=== PATIENT | male | born 1945 | race Caucasian/White ===

== ENCOUNTER 2024-05-18 10:41 | Observation (INO) ==
[2024-05-18] MEDS: ROCEPHIN VIAL 1 GRAM IVP ONE (13:10)
[2024-05-18] MEDS: ROCEPHIN VIAL 1 GRAM 1 G in NS 100 ML IV 100 ML IV ONE (13:16)
[2024-05-18 13:19] LABS: HEMOGLOBIN 10.9 g/dL (13.5-18.0); RED BLOOD COUNT 3.81 X10^6/uL (4.7-6.0); WHITE BLOOD COUNT 3.1 X10^3/uL (3.6-10.0)
[2024-05-18 13:22] LABS: BASOPHILS # (AUTO) 0.1 X10^3/uL (0.0-0.1); EOSINOPHILS # (AUTO) 0.1 x10^3/uL (0.0-0.2); EOSINOPHILS % (AUTO) 4.7 % (0.9-2.9); HEMATOCRIT 32.6 % (42.0-54.0); LYMPHOCYTES # (AUTO) 0.3 X10^3/uL (1.3-2.9); LYMPHOCYTES % (AUTO) 8.4 % (21.0-51.0); MEAN CORPUSCULAR HEMOGLOBIN 28.6 pg (27.0-34.0); MEAN CORPUSCULAR HGB CONC 33.4 g/dL (33.0-35.0); MEAN CORPUSCULAR VOLUME 85.5 fL (80.0-100.0); MEAN PLATELET VOLUME 8.6 fL (7.4-11.0); MONOCYTES # (AUTO) 0.2 x10^3/uL (0.3-0.8); MONOCYTES % (AUTO) 6.3 % (0.0-13.0); NEUTROPHILS # (AUTO) 2.4 x10^3/uL (2.2-4.8); NEUTROPHILS % (AUTO) 77.6 % (42.0-75.0); PLATELET COUNT 134 X10^3/uL (150.0-450.0); RED CELL DISTRIBUTION WIDTH 15.4 % (11.6-16.5)
[2024-05-18 13:33] LABS: ALBUMIN 2.8 g/dL (3.4-5.0); CALCIUM 8.9 mg/dL (8.5-10.1); CARBON DIOXIDE 27.9 mmol/L (21-32); COR CA(FOR HYPOALB) 9.9 mg/dL (8.5-10.1); CREATININE 1.54 mg/dL (0.70-1.30); POTASSIUM 3.7 mmol/L (3.5-5.1); TOTAL PROTEIN 6.8 g/dL (6.4-8.2)
[2024-05-18 13:42] LABS: BAND NEUTROPHILS % 8 % (0-10); PLATELET MORPHOLOGY COMMENT NORMAL (NORMAL)
[2024-05-18 14:28] LABS: BILIRUBIN,URINE NEGATIVE (NEGATIVE); BLOOD/HEMOGLOBIN,URINE 1+ (NEGATIVE); GLUCOSE, URINE NEGATIVE (NEGATIVE); KETONES,URINE NEGATIVE (NEGATIVE); LEUKOCYTE ESTERASE ,URINE NEGATIVE (NEGATIVE); NITRITES,URINE NEGATIVE (NEGATIVE); PROTEIN,URINE 2+ (NEGATIVE); UROBILINOGEN,URINE NORMAL (NORMAL)
[2024-05-18 14:46] LABS: APPEARANCE,URINE CLEAR (CLEAR); COLOR,URINE YELLOW (YELLOW)
[2024-05-18 14:47] LABS: BACTERIA,URINE 1+ /HPF (NEGATIVE); SQUAMOUS EPITHELIAL CELL,UR FEW /HPF (NEGATIVE)
[2024-05-18 14:50] LABS: GRANULAR CASTS,URINE FEW /LPF (NEGATIVE)
[2024-05-18] MEDS: NS 1,000 ML IV 1,000 ML IV SCH (16:01)
--- NOTE | 2024-05-18 16:14 | DR.UPM ---
HPI Time Seen Time Seen by Provider: 05/18/24 12:40 PCP Primary Care Physician: Maria Guadalupe Shultz Complaint Chief Complaint Doctors Comments: 79 yo M, hx of bone cancer of unknown type, diagnosed with UTI by PCP 2d ago, had Rocephin in office, started on Bactrim. Brought to ER by daughter yest, seen by me, was c/o hallucinations, weakness & mult falls yest. Pt was given dose of Rocephin here yest. Urine appeared partially treated yest, given option for admission at that time, decision was made to go home with strict return precautions. Today, daughter states pt continues to have nightly hallucinations, confusion and multiple falls. Denies other complaints. Chief Complaint:: Marielle, daughter states that patient was here yesterday for UTI, fever, hallucinations and fall. He is having the same symptoms so she brought him back today. She states that the ER doctor yesterday said to come back if not better. no fall since before yesterday visit. patient c/o burning with urination Self Treatment fo Chief Complaint: Tylenol at 0830 for 101 temp COVID-19 Coronavirus risk:travel/contact w/high risk person: No Has patient experienced Coronavirus symptoms: No Source History Provided: Patient and Family Member Mode of Arrival Mode of Arrival: Ambulatory Timing Onset of Chief Complaint: 05/12/24 PMH PMH Past Medical History: Yes Past Medical History: COPD, Coronary Artery Disease and Hypertension Past Surgical History: Yes Surgical History: Appendectomy, CABG/Valve Surgery and Ortho Surgery Family History History of Family Medical Conditions: Yes Family Medical History: Diabetes Mellitus, [place] and Hypertension Social History Type of Tobacco Use: None Alcohol Use: None Do you use any recreational Drugs:: No Lives With: Significant Other Lives Where: Home Travel Risk Coronavirus risk:travel/contact w/high risk person: No Has patient experienced Coronavirus symptoms: No Infectious screening Have you traveled outside the country in the last 6 months?: No Isolation: Standard ROS Review of Systems Constitutional: Chills, Fever, Malaise, Weakness and Other (multiple falls) Psychiatric: Hallucinations All Other Systems: Reviewed and Negative PE Vital Signs Vitals: Vital Signs Temperature 100.1 F Pulse Rate 96 Respiratory Rate 16 Blood Pressure 114/56 O2 Sat by Pulse Oximetry 95 General Limitations: No Limitations General Appearance: Alert and In No Apparent Distress Head Head Exam: Normal Inspection Eyes Eye exam: Normal Appearance ENT ENT Exam: Normal Exam Neck Neck Exam: Normal Inspection Chest Chest Inspection: Normal Inspection Respiratory Respiratory Exam: Normal Lung Sounds Bilat Respiratory Exam: Bilateral: Clear to Auscultation Cardiovascular Cardiovascular Exam: Regular Rate and Normal Rhythm Abdominal Exam Abdominal Exam: Normal Inspection, Normal Bowel Sounds and Soft Rectal Rectal Exam: Deferred Genitourinary Exam: Male: Deferred Extremities Extremities Exam: Normal Inspection Back Back Exam: Normal Inspection Neurologic Neurological Exam: Alert and Oriented X3 Psychiatric Psychiatric Exam: Normal Affect and Normal Mood Skin Skin Exam: Warm, Dry, Intact and Normal Color ROR Labs Reviewed 05/18/24 12:57 05/18/24 12:57 Laboratory: WBC 3.1 X10^3/uL (3.6-10.0) L 05/18/24 12:57 RBC 3.81 X10^6/uL (4.7-6.0) L 05/18/24 12:57 Hgb 10.9 g/dL (13.5-18.0) L 05/18/24 12:57 Hct 32.6 % (42.0-54.0) L 05/18/24 12:57 MCV 85.5 fL (80.0-100.0) 05/18/24 12:57 MCH 28.6 pg (27.0-34.0) 05/18/24 12:57 MCHC 33.4 g/dL (33.0-35.0) 05/18/24 12:57 RDW 15.4 % (11.6-16.5) 05/18/24 12:57 Plt Count 134 X10^3/uL (150.0-450.0) L 05/18/24 12:57 Plt Count Comment Decreased (ADEQUATE) 05/18/24 12:57 MPV 8.6 fL (7.4-11.0) 05/18/24 12:57 Neut % (Auto) 77.6 % (42.0-75.0) H 05/18/24 12:57 Lymph % (Auto) 8.4 % (21.0-51.0) L 05/18/24 12:57 [place] % (Auto) 6.3 % (0.0-13.0) 05/18/24 12:57 Eos % (Auto) 4.7 % (0.9-2.9) H 05/18/24 12:57 Baso % (Auto) 3.0 % (0.2-1.0) H 05/18/24 12:57 Neut # (Auto) 2.4 x10^3/uL (2.2-4.8) 05/18/24 12:57 Lymph # (Auto) 0.3 X10^3/uL (1.3-2.9) L 05/18/24 12:57 [place] # (Auto) 0.2 x10^3/uL (0.3-0.8) L 05/18/24 12:57 Eos # (Auto) 0.1 x10^3/uL (0.0-0.2) 05/18/24 12:57 Baso # (Auto) 0.1 X10^3/uL (0.0-0.1) 05/18/24 12:57 Absolute Nucleated RBC 0.2 /100WBC 05/18/24 12:57 Total Counted 100 05/18/24 12:57 Neutrophils % (Manual) 76 % (39-76) 05/18/24 12:57 Band Neutrophils % 8 % (0-10) 05/18/24 12:57 Lymphocytes % (Manual) 9 % (13-43) L 05/18/24 12:57 Monocytes % (Manual) 7 % (4-9) 05/18/24 12:57 Plt Morphology Comment Normal (NORMAL) 05/18/24 12:57 RBC Morphology Normal (NORMAL) 05/18/24 12:57 Sodium 136 mmol/L (136-145) 05/18/24 12:57 Corrected Sodium 136 mmol/L (136-145) 05/18/24 12:57 Potassium 3.7 mmol/L (3.5-5.1) 05/18/24 12:57 Chloride 101 mmol/L (98-107) 05/18/24 12:57 Carbon Dioxide 27.9 mmol/L (21-32) 05/18/24 12:57 BUN 19 mg/dL (7-18) H 05/18/24 12:57 Creatinine 1.54 mg/dL (0.70-1.30) H 05/18/24 12:57 Est GFR (MDRD) Af Amer 57 (>60) L 05/18/24 12:57 Est GFR (MDRD) Non-Af 47 (>60) L 05/18/24 12:57 Glucose 112 mg/dL (65-99) H 05/18/24 12:57 Lactic Acid 1.1 mmol/L (0.4-2.0) 05/18/24 12:57 Calcium 8.9 mg/dL (8.5-10.1) 05/18/24 12:57 Corrected Calcium 9.9 mg/dL (8.5-10.1) 05/18/24 12:57 Total Bilirubin 0.30 mg/dL (0.2-1.0) 05/18/24 12:57 AST 26 Units/L (15-37) 05/18/24 12:57 ALT 20 Units/L (12-78) 05/18/24 12:57 Alkaline Phosphatase 95 Units/L (46-116) 05/18/24 12:57 Total Protein 6.8 g/dL (6.4-8.2) 05/18/24 12:57 Albumin 2.8 g/dL (3.4-5.0) L 05/18/24 12:57 Globulin 4.0 g/dL (2.5-4.5) 05/18/24 12:57 Albumin/Globulin Ratio 0.7 Ratio (1.1-2.1) L 05/18/24 12:57 Specimen Type Clean catch urine 05/18/24 14:23 Urine Color Yellow (YELLOW) 05/18/24 14:23 Urine Appearance Clear (CLEAR) 05/18/24 14:23 Urine pH 6.0 (5.0 - 8.0) 05/18/24 14:23 Ur Specific [place] 1.020 (1.000-1.030) 05/18/24 14:23 Urine Protein 2+ (NEGATIVE) 05/18/24 14:23 Urine Glucose (UA) Negative (NEGATIVE) 05/18/24 14:23 Urine Ketones Negative (NEGATIVE) 05/18/24 14:23 Urine Blood 1+ (NEGATIVE) 05/18/24 14:23 Urine Nitrite Negative (NEGATIVE) 05/18/24 14:23 Urine Bilirubin Negative (NEGATIVE) 05/18/24 14:23 Urine Urobilinogen Normal (NORMAL) 05/18/24 14:23 Ur Leukocyte Esterase Negative (NEGATIVE) 05/18/24 14:23 Urine RBC 3-5 /HPF (0-3) A 05/18/24 14:23 Urine WBC None seen /HPF (0-5) 05/18/24 14:23 Ur Squamous Epith Cells Few /HPF (NEGATIVE) 05/18/24 14:23 Amorphous Sediment 1+ /HPF (NEGATIVE) 05/18/24 14:23 Urine Bacteria 1+ /HPF (NEGATIVE) 05/18/24 14:23 Granular Casts Few /LPF (NEGATIVE) 05/18/24 14:23 Urine Mucus Few /HPF (NEGATIVE) 05/18/24 14:23 Ur Culture Indicated? No/not indicated 05/18/24 14:23 SARS-CoV-2 (PCR) Negative (NEGATIVE) 05/18/24 14:04 Influenza Type A (PCR) Negative (NEGATIVE) 05/18/24 14:04 Influenza Type B (PCR) Negative (NEGATIVE) 05/18/24 14:04 RSV (PCR) Negative (NEGATIVE) 05/18/24 14:04 Opioid Opioid Risk Tool Age (Dwight box if 16-45): No History of Preadolescent Sexual Abuse: No Total: 0 Total Score Risk Category: Low Risk Copyright: Morin predicting aberrant behaviors Discharge Plan Diagnosis Discharge Problem: TEMO (acute kidney injury), Weakness, Hallucinations, Acute UTI Discharge Plan Patient Disposition: 09 ADMITTED INPATIENT Condition: Stable Prescriptions: No Action metoprolol succinate 50 MG tablet extended release 24 hr 50 mg PO DAILY tamsulosin 0.4 MG capsule,extended release 24hr 1 tab PO DAILY Patient Comments: take one capsule by mouth 30 minutes after the same meal each day zolpidem 10 MG tablet 10 mg PO DAILY hydrocodone-acetaminophen 10-325 mg tablet 1 tab PO QID PRN amlodipine 10 mg tablet 10 mg PO QDAY pantoprazole 40 mg tablet,delayed release (DR/EC) 40 mg PO QDAY gabapentin 300 mg capsule 300 mg PO BID losartan 100 mg tablet 100 mg PO QDAY rosuvastatin 20 mg tablet 20 mg PO QPM sulfamethoxazole-trimethoprim [Bactrim DS] 800-160 mg tablet 1 tab PO BID Qty: 10 0RF Rx Instructions: x 14 days started on 05/16/24 clopidogrel 75 mg tablet 75 mg PO DAILY Health Concerns: Post Hospitalization: new medications and changes needed to prevent readmission or further decline. Pt educated and given instructions on all concerns. Plan of Treatment: Continue with present treatment and follow up plan. Pt is to keep follow up appointment as instructed and take medications as ordered. Orders to Discharge Patient Discharge Orders: Transfer (Routine); Ordered 05/18/24 Ordered By: Aron Damon Follow ups/Referrals Follow ups/Referrals: MARIA GUADALUPE SHULTZ [Primary Care Provider] - 3 days Instructions Stand Alone Forms: Find Help Web Site, Post Hospital Follow Up Care ADDITIONAL NOTES Additional Notes Additional Notes: admitted by Dr Pleitez at 1605
[2024-05-18] MEDS ORDERED: PROVENTIL NEB TX 0.083% 2.5MG/ 3ML NEB PRN (17:11)
[2024-05-18] MEDS: TYLENOL 325 MG TAB PO PRN (17:33)
[2024-05-18] MEDS ORDERED: CONSULT PHARMACY - POTASSIUM & MAGNESIUM XX SCH (18:00)
[2024-05-18 18:04] VITALS: BMI 25.7
[2024-05-18] MEDS: MILK OF MAGNESIA PO PRN (20:17)
[2024-05-18] MEDS: KLOR-CON PO SCH (20:18)
[2024-05-18] MEDS: MAG-OX TAB PO SCH (20:19)
[2024-05-18] MEDS: CRESTOR TAB 10 MG PO SCH (20:19)
[2024-05-18] MEDS: NEURONTIN CAP 300 MG PO SCH (20:20)
[2024-05-18] MEDS: COLACE CAP 100 MG PO PRN (20:20)
[2024-05-19 06:24] LABS: BASOPHILS % (AUTO) 0.4 % (0.2-1.0); EOSINOPHILS % (AUTO) 0.7 % (0.9-2.9); HEMATOCRIT 32.8 % (42.0-54.0); LYMPHOCYTES # (AUTO) 0.4 X10^3/uL (1.3-2.9); MEAN CORPUSCULAR HEMOGLOBIN 28.6 pg (27.0-34.0); MEAN CORPUSCULAR HGB CONC 33.6 g/dL (33.0-35.0); MEAN CORPUSCULAR VOLUME 85.1 fL (80.0-100.0); MEAN PLATELET VOLUME 9.2 fL (7.4-11.0); MONOCYTES # (AUTO) 0.2 x10^3/uL (0.3-0.8); MONOCYTES % (AUTO) 8.7 % (0.0-13.0); NEUTROPHILS # (AUTO) 1.8 x10^3/uL (2.2-4.8); NEUTROPHILS % (AUTO) 74.2 % (42.0-75.0); PLATELET COUNT 111 X10^3/uL (150.0-450.0); RED BLOOD COUNT 3.85 X10^6/uL (4.7-6.0); RED CELL DISTRIBUTION WIDTH 15.4 % (11.6-16.5); WHITE BLOOD COUNT 2.4 X10^3/uL (3.6-10.0)
[2024-05-19 06:30] LABS: INR 1.61 (0.8-1.3)
[2024-05-19 06:46] LABS: ALANINE AMINOTRANSFERASE 34 Units/L (12-78); ALBUMIN 2.7 g/dL (3.4-5.0); ALKALINE PHOSPHATASE 141 Units/L (46-116); ASPARTATE AMINO TRANSFERASE 48 Units/L (15-37); BLOOD UREA NITROGEN 20 mg/dL (7-18); CALCIUM 8.7 mg/dL (8.5-10.1); CARBON DIOXIDE 25.7 mmol/L (21-32); CHLORIDE 103 mmol/L (98-107); COR CA(FOR HYPOALB) 9.7 mg/dL (8.5-10.1); COR NA(FOR HYPERGLY) 138 mmol/L (136-145); CREATININE 1.26 mg/dL (0.70-1.30); GLUCOSE 117 mg/dL (65-99); POTASSIUM 4.1 mmol/L (3.5-5.1); SODIUM 138 mmol/L (136-145); TOTAL PROTEIN 6.6 g/dL (6.4-8.2); eGFR NON BLACK RACES 59 (>60)
[2024-05-19 06:59] LABS: BAND NEUTROPHILS % 6 % (0-10); PLATELET MORPHOLOGY COMMENT NORMAL (NORMAL)
[2024-05-19] MEDS: FLOMAX PO SCH (08:29)
[2024-05-19] MEDS: PROTONIX TAB 40 MG PO SCH (08:29)
[2024-05-19] MEDS: NORVASC TAB 10 MG PO SCH (08:29)
[2024-05-19] MEDS: COZAAR PO SCH (08:29)
[2024-05-19] MEDS: PLAVIX PO SCH (08:29)
[2024-05-19] MEDS: TOPROL XL PO SCH (08:29)
[2024-05-19] MEDS: ROCEPHIN VIAL 1 GRAM IV SCH (08:30)
[2024-05-19] MEDS: LOVENOX INJ 40 MG SYR SC SCH (10:31)
[2024-05-19] MEDS: ALPRAZOLAM ODT PO PRN (20:14)
--- NOTE | 2024-05-19 20:15 | DR.H&P ---
H&P History & Physical for Day of: H&P Date: 05/19/24 Chief Complaint Chief Complaint: AMS, UTI, falls History of Present Illness History of Present Illness: Patient is a 79y/o male with a PMH of COPD, CAD, HTN presented with hallucinations, fall, and AMS. He was being treated outpatient for UTI. ER work up showed CT-brain neg, Cr 1.54. He was started on IV antibiotics and fluids. He is alert and oriented today. Labs/imaging reviewed: -WBC 2.4 Hgb 11 K 4.1 Cr 1.26 -Blood Cx pending -CT-brain neg Plan: continue hydration and IV antibiotics. Follow pending cultures. Resume home medications. Replace electrolytes as per protocol. Continue Xanax, hold ambien due to hallucinations. Monitor AM labs/imaging. Past Medical History Past Medical History: COPD, Coronary Artery Disease and Hypertension Past Surgical History Surgical History: Appendectomy, CABG/Valve Surgery, Ortho Surgery and Other Family History Family Medical History: Diabetes Mellitus, [place] and Hypertension Social History Does patient currently use any type of tobacco product: No Type of Tobacco Use: None Alcohol Use: None Drug Use: None Medications Home Medications: Home Medications Medication Instructions Recorded Confirmed Type metoprolol succinate 50 mg 50 mg PO DAILY 04/04/16 05/18/24 History tablet,extended release 24 hr tamsulosin 0.4 mg capsule 1 tab PO DAILY 04/04/16 05/18/24 History zolpidem 10 mg tablet 10 mg PO DAILY 04/04/16 05/18/24 History amlodipine 10 mg tablet 10 mg PO QDAY 07/05/23 05/18/24 History gabapentin 300 mg capsule 300 mg PO BID 07/05/23 05/18/24 History hydrocodone 10 mg-acetaminophen 1 tab PO QID PRN 07/05/23 05/18/24 History 325 mg tablet losartan 100 mg tablet 100 mg PO QDAY 07/05/23 05/18/24 History pantoprazole 40 mg tablet,delayed 40 mg PO QDAY 07/05/23 05/18/24 History release rosuvastatin 20 mg tablet 20 mg PO QPM 07/05/23 05/18/24 History clopidogrel 75 mg tablet 75 mg PO DAILY 05/17/24 05/18/24 History alprazolam 0.5 mg tablet 0.5 mg PO BID 05/18/24 05/18/24 History ascorbic acid (vitamin C) 500 mg 500 mg PO QDAY 05/18/24 05/18/24 History tablet (Vitamin C) aspirin 81 mg tablet 81 mg PO QDAY 05/18/24 05/18/24 History cyanocobalamin (vitamin B-12) 1,000 mcg PO QDAY 05/18/24 05/18/24 History 1,000 mcg tablet (Vitamin B-12) Allergies Allergies Allergy/AdvReac Type Severity Reaction Status Date / Time No Known Allergies Allergy Verified 05/18/24 10:53 Labs 05/19/24 05:23 05/19/24 05:23 Labs: Laboratory WBC 2.4 X10^3/uL (3.6-10.0) L 05/19/24 05:23 RBC 3.85 X10^6/uL (4.7-6.0) L 05/19/24 05:23 Hgb 11.0 g/dL (13.5-18.0) L 05/19/24 05:23 Hct 32.8 % (42.0-54.0) L 05/19/24 05:23 MCV 85.1 fL (80.0-100.0) 05/19/24 05:23 MCH 28.6 pg (27.0-34.0) 05/19/24 05:23 MCHC 33.6 g/dL (33.0-35.0) 05/19/24 05:23 RDW 15.4 % (11.6-16.5) 05/19/24 05:23 Plt Count 111 X10^3/uL (150.0-450.0) L 05/19/24 05:23 Plt Count Comment Decreased (ADEQUATE) 05/19/24 05:23 MPV 9.2 fL (7.4-11.0) 05/19/24 05:23 Neut % (Auto) 74.2 % (42.0-75.0) 05/19/24 05:23 Lymph % (Auto) 16.0 % (21.0-51.0) L 05/19/24 05:23 [place] % (Auto) 8.7 % (0.0-13.0) 05/19/24 05:23 Eos % (Auto) 0.7 % (0.9-2.9) L 05/19/24 05:23 Baso % (Auto) 0.4 % (0.2-1.0) 05/19/24 05:23 Neut # (Auto) 1.8 x10^3/uL (2.2-4.8) L 05/19/24 05:23 Lymph # (Auto) 0.4 X10^3/uL (1.3-2.9) L 05/19/24 05:23 [place] # (Auto) 0.2 x10^3/uL (0.3-0.8) L 05/19/24 05:23 Eos # (Auto) 0.0 x10^3/uL (0.0-0.2) 05/19/24 05:23 Baso # (Auto) 0.0 X10^3/uL (0.0-0.1) 05/19/24 05:23 Absolute Nucleated RBC 0.0 /100WBC 05/19/24 05:23 Total Counted 50 05/19/24 05:23 Neutrophils % (Manual) 84 % (39-76) H 05/19/24 05:23 Band Neutrophils % 6 % (0-10) 05/19/24 05:23 Lymphocytes % (Manual) 8 % (13-43) L 05/19/24 05:23 Monocytes % (Manual) 2 % (4-9) L 05/19/24 05:23 Plt Morphology Comment Normal (NORMAL) 05/19/24 05:23 RBC Morphology Normal (NORMAL) 05/19/24 05:23 PT 18.7 SECONDS (11.8-14.3) 05/19/24 05:23 INR Target Range - 05/19/24 05:23 INR 1.61 (0.8-1.3) H 05/19/24 05:23 APTT 41.1 SECONDS (22.9-36.5) H 05/19/24 05:23 PTT Comment - 05/19/24 05:23 Sodium 138 mmol/L (136-145) 05/19/24 05:23 Corrected Sodium 138 mmol/L (136-145) 05/19/24 05:23 Potassium 4.1 mmol/L (3.5-5.1) 05/19/24 05:23 Chloride 103 mmol/L (98-107) 05/19/24 05:23 Carbon Dioxide 25.7 mmol/L (21-32) 05/19/24 05:23 BUN 20 mg/dL (7-18) H 05/19/24 05:23 Creatinine 1.26 mg/dL (0.70-1.30) 05/19/24 05:23 Est GFR (MDRD) Af Amer > 60 (>60) 05/19/24 05:23 Est GFR (MDRD) Non-Af 59 (>60) 05/19/24 05:23 Glucose 117 mg/dL (65-99) H 05/19/24 05:23 Lactic Acid 1.1 mmol/L (0.4-2.0) 05/18/24 12:57 Calcium 8.7 mg/dL (8.5-10.1) 05/19/24 05:23 Corrected Calcium 9.7 mg/dL (8.5-10.1) 05/19/24 05:23 Magnesium 2.0 mg/dL (2.0-2.9) 05/19/24 05:23 Total Bilirubin 0.30 mg/dL (0.2-1.0) 05/19/24 05:23 AST 48 Units/L (15-37) H 05/19/24 05:23 ALT 34 Units/L (12-78) 05/19/24 05:23 Alkaline Phosphatase 141 Units/L (46-116) H 05/19/24 05:23 Creatine Kinase 82 Units/L (39-308) 05/19/24 16:30 Total Protein 6.6 g/dL (6.4-8.2) 05/19/24 05:23 Albumin 2.7 g/dL (3.4-5.0) L 05/19/24 05:23 Globulin 3.9 g/dL (2.5-4.5) 05/19/24 05:23 Albumin/Globulin Ratio 0.7 Ratio (1.1-2.1) L 05/19/24 05:23 Specimen Type Clean catch urine 05/18/24 14:23 Urine Color Yellow (YELLOW) 05/18/24 14:23 Urine Appearance Clear (CLEAR) 05/18/24 14:23 Urine pH 6.0 (5.0 - 8.0) 05/18/24 14:23 Ur Specific [place] 1.020 (1.000-1.030) 05/18/24 14:23 Urine Protein 2+ (NEGATIVE) 05/18/24 14:23 Urine Glucose (UA) Negative (NEGATIVE) 05/18/24 14:23 Urine Ketones Negative (NEGATIVE) 05/18/24 14:23 Urine Blood 1+ (NEGATIVE) 05/18/24 14:23 Urine Nitrite Negative (NEGATIVE) 05/18/24 14:23 Urine Bilirubin Negative (NEGATIVE) 05/18/24 14:23 Urine Urobilinogen Normal (NORMAL) 05/18/24 14:23 Ur Leukocyte Esterase Negative (NEGATIVE) 05/18/24 14:23 Urine RBC 3-5 /HPF (0-3) A 05/18/24 14:23 Urine WBC None seen /HPF (0-5) 05/18/24 14:23 Ur Squamous Epith Cells Few /HPF (NEGATIVE) 05/18/24 14:23 Amorphous Sediment 1+ /HPF (NEGATIVE) 05/18/24 14:23 Urine Bacteria 1+ /HPF (NEGATIVE) 05/18/24 14:23 Granular Casts Few /LPF (NEGATIVE) 05/18/24 14:23 Urine Mucus Few /HPF (NEGATIVE) 05/18/24 14:23 Ur Culture Indicated? No/not indicated 05/18/24 14:23 SARS-CoV-2 (PCR) Negative (NEGATIVE) 05/18/24 14:04 Influenza Type A (PCR) Negative (NEGATIVE) 05/18/24 14:04 Influenza Type B (PCR) Negative (NEGATIVE) 05/18/24 14:04 RSV (PCR) Negative (NEGATIVE) 05/18/24 14:04 Review of Systems Constitutional: Weakness Eyes: No Symptoms Reported ENT: No Symptoms Reported Respiratory: No Symptoms Reported Cardiovascular: No Symptoms Reported Gastrointestinal: No Symptoms Reported Genitourinary: No Symptoms Reported Musculoskeletal: No Symptoms Reported Skin: No Symptoms Reported Neurological: Confusion Physical Exam Vital Signs: Vital Signs Temperature 99.3 F Temperature 101.2 F Pulse Rate [Brachial] 99 Respiratory Rate 18 Respiratory Rate 17 Respiratory Rate 18 Blood Pressure [Left Arm] 146/67 O2 Sat by Pulse Oximetry 93 Oriented: Normal Eyes: Normal Ear: Normal Nose: Normal Throat: Normal Respiratory: Clear Throughout Cardiovascular: Normal Auscultation: Bowel Sounds: Normal Palpation: Normal Tenderness: Normal Skin: Normal Musculoskeletal: Normal Psychiatric: Normal Mood Description: Calm and Appropriate Affect: Normal Speech Pattern: Clear and Appropriate Assessment/Plan (1) Generalized weakness: Status: Acute (2) Acute UTI: Status: Acute (3) TEMO (acute kidney injury): Status: Acute (4) Hallucinations: Status: Acute (5) HTN (hypertension): Qualifiers: Hypertension type: primary hypertension Qualified Code(s): I10 - Essential (primary) hypertension Status: Chronic Review H&P Reviewed: Yes Patient was examined?: Yes
[2024-05-20 06:04] LABS: BASOPHILS % (AUTO) 0.5 % (0.2-1.0); EOSINOPHILS # (AUTO) 0.1 x10^3/uL (0.0-0.2); HEMATOCRIT 32.4 % (42.0-54.0); HEMOGLOBIN 10.9 g/dL (13.5-18.0); LYMPHOCYTES # (AUTO) 0.4 X10^3/uL (1.3-2.9); LYMPHOCYTES % (AUTO) 13.4 % (21.0-51.0); MEAN CORPUSCULAR HEMOGLOBIN 28.6 pg (27.0-34.0); MEAN CORPUSCULAR HGB CONC 33.6 g/dL (33.0-35.0); MEAN CORPUSCULAR VOLUME 85.2 fL (80.0-100.0); MONOCYTES # (AUTO) 0.3 x10^3/uL (0.3-0.8); MONOCYTES % (AUTO) 8.4 % (0.0-13.0); NEUTROPHILS # (AUTO) 2.3 x10^3/uL (2.2-4.8); NEUTROPHILS % (AUTO) 75.7 % (42.0-75.0); PLATELET COUNT 146 X10^3/uL (150.0-450.0); RED CELL DISTRIBUTION WIDTH 15.6 % (11.6-16.5); WHITE BLOOD COUNT 3.1 X10^3/uL (3.6-10.0)
[2024-05-20 06:18] LABS: ALANINE AMINOTRANSFERASE 34 Units/L (12-78); ALBUMIN 2.6 g/dL (3.4-5.0); ALKALINE PHOSPHATASE 165 Units/L (46-116); ASPARTATE AMINO TRANSFERASE 33 Units/L (15-37); BLOOD UREA NITROGEN 11 mg/dL (7-18); CALCIUM 8.9 mg/dL (8.5-10.1); CARBON DIOXIDE 27.8 mmol/L (21-32); CHLORIDE 106 mmol/L (98-107); COR NA(FOR HYPERGLY) 143 mmol/L (136-145); CREATININE 0.98 mg/dL (0.70-1.30); GLUCOSE 139 mg/dL (65-99); POTASSIUM 3.7 mmol/L (3.5-5.1); SODIUM 142 mmol/L (136-145); TOTAL PROTEIN 6.5 g/dL (6.4-8.2); eGFR NON BLACK RACES > 60 (>60)
[2024-05-20] MEDS ORDERED: CONSULT PHARMACY - POTASSIUM & MAGNESIUM XX SCH (08:00)
[2024-05-20] MEDS: K-DUR TAB 20 MEQ PO SCH (08:39)
--- NOTE | 2024-05-20 12:47 | PCM.PROG ---
Progress Note Progress Note for Day of Date of Exam: 05/20/24 Subjective Subjective: Patient is a 79y/o male with a PMH of COPD, CAD, HTN he admitted for acute cystitis, TEMO, generalized weakness, and altered mental status. This morning he is sitting up comfortably in bed. No acute events overnight. He is alert and oriented. This morning nursing reported that he did have a fever. Otherwise no other symptoms. Labs/imaging reviewed: -WBC 3.1, hemoglobin 10.9, platelets 146, sodium 142, potassium 3.7, creatinine 0.98, glucose 139, -Urine/Blood Cx pending -CT-brain neg Plan: continue hydration and IV antibiotics. Follow pending cultures. Will get chest x-ray. Home medications have been resumed. Replace electrolytes as per protocol. Continue Xanax, hold ambien due to hallucinations. Otherwise continue with current treatment plan. Monitor AM labs/imaging. Past Medical Family Social History Allergies: Allergies No Known Allergies Allergy (Verified 05/18/24 10:53) Review of Systems ROS changes noted: see HPI Vital Signs and I&O's Vital Signs: Vital Signs Temperature 98.4 F Temperature 98.7 F Temperature 99.6 F Temperature 101.5 F Pulse Rate [Brachial] 75 Pulse Rate [Brachial] 114 Respiratory Rate 20 Respiratory Rate 20 Respiratory Rate 18 Respiratory Rate 20 Blood Pressure [Left Arm] 123/59 Blood Pressure [Left Arm] 140/63 O2 Sat by Pulse Oximetry 96 O2 Sat by Pulse Oximetry 98 Intake and Output: Intake & Output 05/17/24 05/18/24 05/19/24 05/20/24 23:59 23:59 23:59 23:59 Intake Total 954 / 954 3380 / 3380 60 / 60 Balance 954 / 954 3380 / 3380 60 60 Physical Exam Oriented: Normal Eyes: Normal Ear: Normal Nose: Normal Throat: Normal Respiratory: Normal Cardiovascular: Normal Auscultation: Bowel Sounds: Normal Tenderness: Normal Skin: Normal Musculoskeletal: Normal Psychiatric: Normal Mood Description: Calm and Appropriate Affect: Normal Speech Pattern: Clear and Appropriate Laboratory and Diagnostics 05/20/24 05:17 05/20/24 05:17 Labs: 05/18/24 12:57 Blood Blood Culture - Preliminary 05/18/24 12:50 Blood Blood Culture - Preliminary Laboratory WBC 3.1 X10^3/uL (3.6-10.0) L 05/20/24 05:17 RBC 3.80 X10^6/uL (4.7-6.0) L 05/20/24 05:17 Hgb 10.9 g/dL (13.5-18.0) L 05/20/24 05:17 Hct 32.4 % (42.0-54.0) L 05/20/24 05:17 MCV 85.2 fL (80.0-100.0) 05/20/24 05:17 MCH 28.6 pg (27.0-34.0) 05/20/24 05:17 MCHC 33.6 g/dL (33.0-35.0) 05/20/24 05:17 RDW 15.6 % (11.6-16.5) 05/20/24 05:17 Plt Count 146 X10^3/uL (150.0-450.0) L 05/20/24 05:17 Plt Count Comment Decreased (ADEQUATE) 05/19/24 05:23 MPV 9.0 fL (7.4-11.0) 05/20/24 05:17 Neut % (Auto) 75.7 % (42.0-75.0) H 05/20/24 05:17 Lymph % (Auto) 13.4 % (21.0-51.0) L 05/20/24 05:17 [place] % (Auto) 8.4 % (0.0-13.0) 05/20/24 05:17 Eos % (Auto) 2.0 % (0.9-2.9) 05/20/24 05:17 Baso % (Auto) 0.5 % (0.2-1.0) 05/20/24 05:17 Neut # (Auto) 2.3 x10^3/uL (2.2-4.8) 05/20/24 05:17 Lymph # (Auto) 0.4 X10^3/uL (1.3-2.9) L 05/20/24 05:17 [place] # (Auto) 0.3 x10^3/uL (0.3-0.8) 05/20/24 05:17 Eos # (Auto) 0.1 x10^3/uL (0.0-0.2) 05/20/24 05:17 Baso # (Auto) 0.0 X10^3/uL (0.0-0.1) 05/20/24 05:17 Absolute Nucleated RBC 0.1 /100WBC 05/20/24 05:17 Total Counted 50 05/19/24 05:23 Neutrophils % (Manual) 84 % (39-76) H 05/19/24 05:23 Band Neutrophils % 6 % (0-10) 05/19/24 05:23 Lymphocytes % (Manual) 8 % (13-43) L 05/19/24 05:23 Monocytes % (Manual) 2 % (4-9) L 05/19/24 05:23 Plt Morphology Comment Normal (NORMAL) 05/19/24 05:23 RBC Morphology Normal (NORMAL) 05/19/24 05:23 PT 18.7 SECONDS (11.8-14.3) 05/19/24 05:23 INR Target Range - 05/19/24 05:23 INR 1.61 (0.8-1.3) H 05/19/24 05:23 APTT 41.1 SECONDS (22.9-36.5) H 05/19/24 05:23 PTT Comment - 05/19/24 05:23 Sodium 142 mmol/L (136-145) 05/20/24 05:17 Corrected Sodium 143 mmol/L (136-145) 05/20/24 05:17 Potassium 3.7 mmol/L (3.5-5.1) 05/20/24 05:17 Chloride 106 mmol/L (98-107) 05/20/24 05:17 Carbon Dioxide 27.8 mmol/L (21-32) 05/20/24 05:17 BUN 11 mg/dL (7-18) 05/20/24 05:17 Creatinine 0.98 mg/dL (0.70-1.30) 05/20/24 05:17 Est GFR (MDRD) Af Amer > 60 (>60) 05/20/24 05:17 Est GFR (MDRD) Non-Af > 60 (>60) 05/20/24 05:17 Glucose 139 mg/dL (65-99) H 05/20/24 05:17 Lactic Acid 1.1 mmol/L (0.4-2.0) 05/18/24 12:57 Calcium 8.9 mg/dL (8.5-10.1) 05/20/24 05:17 Corrected Calcium 10.0 mg/dL (8.5-10.1) 05/20/24 05:17 Magnesium 2.0 mg/dL (2.0-2.9) 05/19/24 05:23 Total Bilirubin 0.20 mg/dL (0.2-1.0) 05/20/24 05:17 AST 33 Units/L (15-37) 05/20/24 05:17 ALT 34 Units/L (12-78) 05/20/24 05:17 Alkaline Phosphatase 165 Units/L (46-116) H 05/20/24 05:17 Creatine Kinase 82 Units/L (39-308) 05/19/24 16:30 Total Protein 6.5 g/dL (6.4-8.2) 05/20/24 05:17 Albumin 2.6 g/dL (3.4-5.0) L 05/20/24 05:17 Globulin 3.9 g/dL (2.5-4.5) 05/20/24 05:17 Albumin/Globulin Ratio 0.7 Ratio (1.1-2.1) L 05/20/24 05:17 Specimen Type Clean catch urine 05/18/24 14:23 Urine Color Yellow (YELLOW) 05/18/24 14:23 Urine Appearance Clear (CLEAR) 05/18/24 14:23 Urine pH 6.0 (5.0 - 8.0) 05/18/24 14:23 Ur Specific [place] 1.020 (1.000-1.030) 05/18/24 14:23 Urine Protein 2+ (NEGATIVE) 05/18/24 14:23 Urine Glucose (UA) Negative (NEGATIVE) 05/18/24 14:23 Urine Ketones Negative (NEGATIVE) 05/18/24 14:23 Urine Blood 1+ (NEGATIVE) 05/18/24 14:23 Urine Nitrite Negative (NEGATIVE) 05/18/24 14:23 Urine Bilirubin Negative (NEGATIVE) 05/18/24 14:23 Urine Urobilinogen Normal (NORMAL) 05/18/24 14:23 Ur Leukocyte Esterase Negative (NEGATIVE) 05/18/24 14:23 Urine RBC 3-5 /HPF (0-3) A 05/18/24 14:23 Urine WBC None seen /HPF (0-5) 05/18/24 14:23 Ur Squamous Epith Cells Few /HPF (NEGATIVE) 05/18/24 14:23 Amorphous Sediment 1+ /HPF (NEGATIVE) 05/18/24 14:23 Urine Bacteria 1+ /HPF (NEGATIVE) 05/18/24 14:23 Granular Casts Few /LPF (NEGATIVE) 05/18/24 14:23 Urine Mucus Few /HPF (NEGATIVE) 05/18/24 14:23 Ur Culture Indicated? No/not indicated 05/18/24 14:23 SARS-CoV-2 (PCR) Negative (NEGATIVE) 05/18/24 14:04 Influenza Type A (PCR) Negative (NEGATIVE) 05/18/24 14:04 Influenza Type B (PCR) Negative (NEGATIVE) 05/18/24 14:04 RSV (PCR) Negative (NEGATIVE) 05/18/24 14:04 Plan (1) Generalized weakness: Status: Acute (2) Acute UTI: Status: Acute (3) TEMO (acute kidney injury): Status: Acute (4) Hallucinations: Status: Acute (5) HTN (hypertension): Status: Chronic Qualifiers: Hypertension type: primary hypertension Qualified Code(s): I10 - Essential (primary) hypertension
[2024-05-21 05:35] LABS: HEMOGLOBIN 9.2 g/dL (13.5-18.0); MEAN PLATELET VOLUME 9.1 fL (7.4-11.0); MONOCYTES # (AUTO) 0.3 x10^3/uL (0.3-0.8); WHITE BLOOD COUNT 3.1 X10^3/uL (3.6-10.0)
[2024-05-21 05:43] LABS: BASOPHILS % (AUTO) 0.5 % (0.2-1.0); EOSINOPHILS # (AUTO) 0.1 x10^3/uL (0.0-0.2); EOSINOPHILS % (AUTO) 3.6 % (0.9-2.9); HEMATOCRIT 27.2 % (42.0-54.0); LYMPHOCYTES # (AUTO) 0.6 X10^3/uL (1.3-2.9); LYMPHOCYTES % (AUTO) 19.2 % (21.0-51.0); MEAN CORPUSCULAR HEMOGLOBIN 28.7 pg (27.0-34.0); MEAN CORPUSCULAR HGB CONC 33.7 g/dL (33.0-35.0); MEAN CORPUSCULAR VOLUME 85.1 fL (80.0-100.0); MONOCYTES % (AUTO) 9.7 % (0.0-13.0); NEUTROPHILS # (AUTO) 2.1 x10^3/uL (2.2-4.8); PLATELET COUNT 146 X10^3/uL (150.0-450.0); RED CELL DISTRIBUTION WIDTH 15.5 % (11.6-16.5)
[2024-05-21 05:51] LABS: ALANINE AMINOTRANSFERASE 26 Units/L (12-78); ALBUMIN 2.1 g/dL (3.4-5.0); ALKALINE PHOSPHATASE 135 Units/L (46-116); ASPARTATE AMINO TRANSFERASE 20 Units/L (15-37); BLOOD UREA NITROGEN 7 mg/dL (7-18); CALCIUM 8.3 mg/dL (8.5-10.1); CARBON DIOXIDE 26.4 mmol/L (21-32); CHLORIDE 109 mmol/L (98-107); COR CA(FOR HYPOALB) 9.8 mg/dL (8.5-10.1); COR NA(FOR HYPERGLY) 142 mmol/L (136-145); CREATININE 0.75 mg/dL (0.70-1.30); GLUCOSE 116 mg/dL (65-99); POTASSIUM 3.5 mmol/L (3.5-5.1); SODIUM 142 mmol/L (136-145); TOTAL PROTEIN 5.5 g/dL (6.4-8.2); eGFR NON BLACK RACES > 60 (>60)
[2024-05-21] MEDS ORDERED: CONSULT PHARMACY - POTASSIUM & MAGNESIUM XX SCH (07:00)
--- NOTE | 2024-05-21 07:38 | RAD ---
EXAM:AP chestHISTORY:PneumoniaCOMPARISON: [id number]:Similar heart size, normal with sternal wires. The left lung is clearly aerated and no pleural fluid is noted. Prominent linear markings are noted in the right upper lobe without definite consolidation, adenopathy or other significant process.IMPRESSION:Probably normal. See above description of right upper lung. Follow-up suggested if symptoms persist and developing inflammatory process remains a clinical concern.THIS IS AN ELECTRONICALLY VERIFIED FINAL REPORT05/21/2024 7:35 AM - Electronically signed by Tyrone Taylor MD
[2024-05-21] MEDS: K-DUR TAB 20 MEQ PO SCH (09:31)
[2024-05-21] MEDS: ROCEPHIN VIAL 1 GRAM 1 G in NS 100 ML IV 100 ML IV SCH (09:33)
[2024-05-21 11:35] VITALS: BP 143/65; PULSE 83; RESP 20; TEMP 98.1; O2SAT 95
== END 2024-05-21 11:34 | disposition home or self-care (01) ==
LOC: MED/SURG 10:41 → ER 10:41 → MED/SURG 16:47
PROVIDERS: ADMIT Internal Medicine; ATTEND Internal Medicine
DX: R26.89 Other abnormalities of gait and mobility; R41.82 Altered mental status, unspecified; R94.5 Abnormal results of liver function studies; R29.6 Repeated falls; R44.3 Hallucinations, unspecified; I25.10 Atherosclerotic heart disease of native coronary artery without angina pectoris; R79.1 Abnormal coagulation profile; J44.89 Other specified chronic obstructive pulmonary disease; N39.0 Urinary tract infection, site not specified; N17.8 Other acute kidney failure; I10 Essential (primary) hypertension; Z03.818 Encounter for observation for suspected exposure to other biological agents ruled out; R53.1 Weakness; E83.42 Hypomagnesemia